=== PATIENT | male | born 1975 | race Caucasian/White ===

== ENCOUNTER 2019-03-27 20:53 | Emergency (ER) | payer MEDICAID ==
[~2019-03-27] VITALS: Ht 182.9 cm; Wt 81.6 kg
[2019-03-27 21:08] VITALS: BP_SYST 140
[2019-03-28] MEDS ORDERED: HYDROCHLOROTHIAZIDE 25 MG TABLET (HCTZ) PO ONE (01:15)
[2019-03-28] MEDS ORDERED: chlordiazePOXIDE HCL 25 MG CAPSULE PO ONE (01:15)
[2019-03-28 01:55] VITALS: BP_SYST 140
== END 2019-03-28 01:55 | disposition home or self-care (01) ==
LOC: SED 20:53
DX: I10 Essential (primary) hypertension (principal); F10.239 Alcohol dependence with withdrawal, unspecified; Y90.9 Presence of alcohol in blood, level not specified
CPT/HCPCS: 99283